=== PATIENT | female | born 1980 | race Caucasian/White ===

== ENCOUNTER 2018-11-09 21:32 | Emergency (ER) | payer OTHER ==
[~2018-11-09] VITALS: Ht 167.6 cm; Wt 63.5 kg
--- NOTE | 2018-11-09 21:52 | PHYS DOC ---
Past History Past Medical History: Seizure (on Keppra), Other Additional Past Medical Histor: Chiari malformation Past Surgical History: Other Additional Past Surgical Histo: Chiari malformation surgery Smoking: Non-smoker Alcohol Use: None Drug Use: None Adult General HPI HPI Patient is a 38-year-old female presents with right foot and ankle pain after inversion mechanism of injury. Patient was getting off of her bed and didn't realize that her foot had fallen asleep and stumbled as she was trying to walk. Increased pain with movement. She took some ibuprofen with minimal improvement. No previous foot or ankle injury. Pain is moderate in intensity. Swelling is present. This happened shortly prior to arrival.[] Review of Systems Review of Systems Constitutional: Denies fever or chills [] Eyes: Denies change in visual acuity, redness, or eye pain [] HENT: Denies nasal congestion or sore throat [] Respiratory: Denies cough or shortness of breath [] Cardiovascular: No chest pain or palpitations[] GI: Denies abdominal pain, nausea, vomiting, bloody stools or diarrhea [] : Denies dysuria or hematuria [] Musculoskeletal: Denies back pain, see history of present illness[] Integument: Denies rash or skin lesions [] Neurologic: Denies headache, focal weakness or sensory changes [] Endocrine: Denies polyuria or polydipsia [] All other systems were reviewed and found to be within normal limits, except as documented in this note. Physical Exam Physical Exam Constitutional: Well developed, well nourished, no acute distress, non-toxic appearance. [] HENT: Normocephalic, atraumatic, bilateral external ears normal, oropharynx moist, no oral exudates, nose normal. [] Eyes: PERRLA, EOMI, conjunctiva normal, no discharge. [] Neck: Normal range of motion, no tenderness, supple, no stridor. [] Cardiovascular:Heart rate regular rhythm, no murmur [] Lungs & Thorax: Bilateral breath sounds clear to auscultation [] Abdomen: Not examined. [] Skin: Warm, dry, no erythema, no rash. [] Back: No tenderness, no CVA tenderness. [] Extremities: Right ankle has tenderness and swelling over the anterior talo fibular region, no medial or lateral malleolus tenderness. There is tenderness at the base of the fifth metatarsal. No bruising is present. Patient is distally neurovascularly intact. Decreased active range of motion of the ankle secondary to pain. There is no ligamentous laxity. A joint above and below the region were evaluated and were normal. The other 3 extremities show: No tenderness, no cyanosis, no clubbing, ROM intact, no edema. [] Neurologic: Alert and oriented X 3, normal motor function, normal sensory function, no focal deficits noted. [] Psychologic: Affect normal, judgement normal, mood normal. [] EKG EKG [] Radiology/Procedures Radiology/Procedures X-ray of the right foot and ankle shows no evidence of a fracture or dislocation.[] Course & Med Decision Making Course & Med Decision Making Pertinent Labs and Imaging studies reviewed. (See chart for details) Medical decision making: There is no evidence of a fracture or dislocation. No evidence of significant ligamentous or tendinous injury. No evidence of neurologic or vascular compromise. ED course: Patient arrived, was placed in bed, and tolerated exam well. She was transported to and from radiology with any complications. After the return of the imaging findings, these were discussed with the patient voiced understanding. She was placed in a splint device. She was distally brandt rovascularly intact after the splint application. She was discharged in improved condition with all questions answered.[] Dragon Disclaimer Dragon Disclaimer This electronic medical record was generated, in whole or in part, using a voice recognition dictation system. Departure Departure: Impression: Primary Impression: Right ankle sprain Disposition: 01 HOME, SELF-CARE Condition: IMPROVED Referrals: PCP,PAIGE (PCP) Patient Instructions: Ankle Sprain, Acute, with Phase I Rehab-SportsMed, Crutch Use Additional Instructions: Follow-up with your regular doctor in 2 days. He did not have a regular doctor list of local clinics will be provided for you. Weight-bear as tolerated. Return to the ER if worsening pain or any other concerns. Scripts Hydrocodone Bit/Acetaminophen (NORCO 5-325 TABLET) 1 Each Tablet 1-2 TAB PO Q4-6HRS for severe pain, #10 TAB Prov: DMITRIY SOUZA DO 11/09/18 Meloxicam (MELOXICAM) 7.5 Mg Tablet 7.5 MG PO DAILY for PAIN, #20 TAB Prov: DMITRIY SOUZA DO 11/09/18 Problem Qualifiers Primary Impression: Right ankle sprain Encounter type: initial encounter Involved ligament of ankle: anterior talofibular ligament Qualified Codes: S93.491A - Sprain of other ligament of right ankle, initial encounter DMITRIY SOUZA DO Nov 09, 2018 21:52
[2018-11-09 22:05] VITALS: BP 103/59
[2018-11-09] MEDS ORDERED: MELO7.5T29 PO (22:22)
[2018-11-09] MEDS ORDERED: HYDR-3165 PO (22:22)
--- NOTE | 2018-11-10 00:27 | RAD ---
Three-view right ankle radiographs to include 3 view radiographs of the right foot 11/09/2018 CLINICAL HISTORY: Right foot and ankle injury with pain. AP, lateral and oblique digital radiographs of the right ankle and right foot were obtained. The right ankle mortise is intact. No fracture or dislocation of the right ankle is seen. Mild hallux valgus deformity is noted. No fracture or dislocation of the right foot is seen. IMPRESSION: No fracture or dislocation of the right foot is seen. Electronically signed by: Mendez Nazario MD (11/10/2018 12:24 AM) [facility]
== END 2018-11-09 22:52 | disposition home or self-care (01) ==
LOC: ER 21:32 → EDBD 21:32 → ER 22:52
DX: S93.491A Sprain of other ligament of right ankle, initial encounter (principal); W50.2XXA Accidental twist by another person, initial encounter; Y93.89 Activity, other specified; Y92.89 Other specified places as the place of occurrence of the external cause; Y99.8 Other external cause status
CPT/HCPCS: 29515; 73610; 73630; 99284